=== PATIENT | male | born 1995 | race African-American/Black ===

== ENCOUNTER 2017-08-10 12:15 | Emergency (ER) | payer SELFPAY ==
[2017-08-10 12:47] LABS: #Eosinphils 0.1 thou/uL (0.0-0.7); #Lymphocytes 1.1 thou/uL (1.20-3.40); #Monocytes 0.9 thou/uL (0.11-0.59); #Neutrophils 6.4 thou/uL (1.40-6.50); %Basophils 0.4 % (0.0-1.0); %Eosinophils 0.8 % (0.0-10.0); %Monocytes 10.3 % (0.0-4.0); Mean Platelet Volume 7.2 fL (7.4-10.4); Red Blood Cell (RBC) Count 4.74 mill/uL (4.00-5.20); White Blood Cell (WBC) Count 8.4 thou/uL (4.8-10.8)
[2017-08-10 12:54] LABS: PTT 31.9 SEC (22.9-36.1); Prothrombin Time 14.1 SEC (12.0-14.7)
[2017-08-10 13:08] LABS: Anion Gap 11 mmol/L (10-20); BUN (Urea Nitrogen) 9 mg/dL (8.9-20.6); Calc. Creatinine Clearance 0 mL/min (70-130); Calcium 9.7 mg/dL (7.8-10.44); Carbon Dioxide 29 mmol/L (22-29); Chloride 104 mmol/L (98-107); Estimated GFR-MDRD Greater than 90
--- NOTE | 2017-08-10 13:09 | RAD ---
PA AND LATERAL CHEST: Date: 08/10/17 HISTORY: Hemoptysis. FINDINGS: Heart size and mediastinum are within normal limits. Lungs are clear of infiltrates. No significant b ernestina findings. IMPRESSION: No active intrathoracic disease. POS: [id number]
== END 2017-08-10 13:20 | disposition home or self-care (01) ==
LOC: ERS 12:15
DX: R04.2 Hemoptysis (principal); F17.210 Nicotine dependence, cigarettes, uncomplicated
CPT/HCPCS: 36415; 71020; 80048; 85025; 85610; 85730; 86850; 86900; 86901

== ENCOUNTER 2017-12-16 19:59 | Emergency (ER) | payer SELFPAY ==
[2017-12-16 20:59] LABS: Bilirubin Negative (Negative); Blood, Urine Moderate (Negative); Clarity TURBID (Clear); Glucose, Urine (Dipstick) Negative (Negative); Leukocyte Moderate (Negative); Nitrite Negative (Negative); Protein, Urine (Dipstick) 30 mg/dL (Neg-Trace); Specific Gravity, Urine 1.026 (1.002-1.036)
[2017-12-16 21:01] LABS: Bacteria/HPF None Seen HPF (None Seen); Hyaline Casts/LPF 0-3 HYALINE CAST LPF (0-3 Hyaline); Pathc Cast-AUWi Flag 0.29 (0-2.49); RBC/HPF 21-50 HPF (0-3); Squamous Epithelial 0-3 HPF (0-3)
[2017-12-16] MEDS ORDERED: Lidocaine 1% (PF) 30 ML VIAL ONE (21:31)
[2017-12-16] MEDS ORDERED: cefTRIAXone\\ROCEPHIN 250 MG VIAL ONE (21:31)
[2017-12-16] MEDS ORDERED: Azithromycin 250 MG TAB ONE (21:31)
[2017-12-19 22:23] LABS: Chlamydia by PCR Not Detected (NotDetected); GC by PCR DETECTED (NotDetected)
== END 2017-12-16 21:46 | disposition home or self-care (01) ==
LOC: ERS 19:59
DX: R30.0 Dysuria (principal); A64 Unspecified sexually transmitted disease; F17.210 Nicotine dependence, cigarettes, uncomplicated
CPT/HCPCS: 81003; 81015; 87086; 87491; 87591; 96372; J0696; J2001

== ENCOUNTER 2023-03-23 18:28 | Emergency (ER) | payer SELFPAY ==
[2023-03-23] MEDS ORDERED: Azithromycin 250 MG TAB ONE (19:25)
[2023-03-23] MEDS ORDERED: Lidocaine 1% MPF 2 ML VIAL ONE (19:25)
[2023-03-23] MEDS ORDERED: cefTRIAXone (ROCEPHIN) 500 MG VIAL ONE (19:25)
[2023-03-24 12:41] LABS: Chlam.trachomatis by PCR,Urine Not Detected (NotDetected); GC N.gonorrhoeae PCR,UrineVOID Not Detected (NotDetected)
== END 2023-03-23 19:47 | disposition home or self-care (01) ==
LOC: ERS 18:28
DX: R59.1 Generalized enlarged lymph nodes (principal); Z20.2 Contact with and (suspected) exposure to infections with a predominantly sexual mode of transmission
CPT/HCPCS: 87491; 87591; 96372; 99283; J0696